=== PATIENT | male | born 1965 | race Caucasian/White ===

== ENCOUNTER 2025-02-12 06:21 | Day surgery (SDC) | payer OTHER, SELFPAY | END 2025-02-12 14:22 | disposition home or self-care (01) | LOC: GI 06:21 | PROVIDERS: ATTENDING PHYSICIAN Internal Medicine Gastroenterology | DX: K31.89 Other diseases of stomach and duodenum (principal); Z87.19 Personal history of other diseases of the digestive system | CPT/HCPCS: 43239; 88305; 88342 ==

== ENCOUNTER → 2025-03-17 11:07 | Outpatient (REF) | payer OTHER, SELFPAY | LOC: RAD 11:07 | PROVIDERS: ATTENDING PHYSICIAN Surgery; FAMILY PHYSICIAN Physician Assistant | DX: K40.91 Unilateral inguinal hernia, without obstruction or gangrene, recurrent (principal) | CPT/HCPCS: 74177; Q9967 ==

== ENCOUNTER → 2025-05-21 09:08 | Outpatient (REF) | payer OTHER, SELFPAY | LOC: HWRAD 09:08 | PROVIDERS: ATTENDING PHYSICIAN Physician Assistant | DX: R63.4 Abnormal weight loss (principal) | CPT/HCPCS: 71046 ==